=== PATIENT | male | born 1950 | race American Indian/Alaskan Native ===

== ENCOUNTER 2019-05-07 12:54 | Day surgery (SDC) | payer OTHER ==
[2019-05-07] MEDS ORDERED: LACTATED RINGERS 1,000 ML IV SCH (14:15)
[2019-05-07] MEDS ORDERED: LACTATED RINGERS 1,000 ML ONE (14:23)
--- NOTE | 2019-05-07 14:48 | Anesthesia Day of Surgery ---
Anesthesia Day of Surgery - Day of Surgery Patient Examined: Yes Patient H&P Reviewed: Yes Patient is NPO: Yes (2199) Beta Blockers: No Cardiac Clearance: No Pulmonary Clearance: No Viktor's Test: N/A
--- NOTE | 2019-05-07 14:53 | Anesthesia Consultation ---
Anesthesia Consult and Med Hx Date of service: 05/07/19 - Airway Anesthetic Teeth Evaluation: Good ROM Head & Neck: Adequate Mental/Hyoid Distance: Adequate Intubation Access Assessment: Good - Pulmonary Exam CTA: Yes - Cardiac Exam Cardiac Exam: RRR - Pre-Operative Health Status ASA Pre-Surgery Classification: ASA2 Proposed Anesthetic Plan: General - Pulmonary Hx Smoking: Yes (QUIT 2004) Hx Asthma: No Hx Respiratory Symptoms: No SOB: No COPD: No Home Oxygen Therapy: No Hx Pneumonia: No Hx Sleep Apnea: Yes (DX SLEEP APNEA , NO CPAP USE.) - Cardiovascular System Hx Hypertension: No Hx Coronary Artery Disease: No Hx Heart Attack/AMI: No Hx Angina: No Hx Percutaneous Transluminal Coronary Angioplasty (PTCA): No Hx Cardia Arrhythmia: No Hx Pacemaker: No Hx Internal Defibrillator: No Hx Valvular Heart Disease: No Hx Heart Murmur: No Hx Peripheral Vascular Disease: No - Central Nervous System Hx Neuromuscular Disorder: No Hx Seizures: No CVA: No Hx Back Pain: Yes (OCC.) Hx Psychiatric Problems: Yes ([PTSD ]) - Gastrointestinal Hx Ulcer: No Hx Gastroesophageal Reflux Disease: No - Endocrine Hx Renal Disease: No Hx End Stage Renal Disease: No Hx Cirrhosis: No Hx Liver Disease: No Hx Insulin Dependent Diabetes: No Hx Non-Insulin Dependent Diabetes: No Hx Thyroid Disease: No Hx Hypothyroidism: No Hx Hyperthyroidism: No - Hematic Hx Anemia: No Hx Sickle Cell Disease: No - Other Systems Hx Alcohol Use: Yes (OCC. VODKA) Hx Substance Use: No Hx Cancer: No
[2019-05-07] MEDS ORDERED: ceFAZolin/Water 2 GM/20 ML 2 GM/20 ML SYRINGE IV NR (15:00)
[2019-05-07] MEDS ORDERED: LIDOCAINE MPF (2%) 20 MG/1 ML VIAL 5 ML ONE (15:56)
[2019-05-07] MEDS ORDERED: fentaNYL 100 MCG/2 ML INJ ONE (15:56)
[2019-05-07] MEDS ORDERED: propofoL 200 MG/20 ML VIAL IV ONE (15:57)
--- NOTE | 2019-05-07 16:39 | Post Operative Note ---
Date of procedure: 05/07/19 Pre-op diagnosis: broussard Post-op diagnosis: same Findings: bph Procedure: rezum Anesthesia: GETA Surgeon: BHAVNA BLACKWELL Estimated blood loss: minimal Pathology: none Condition: stable Disposition: PACU
--- NOTE | 2019-05-07 16:41 | Discharge Summary ---
Short Stay Discharge Plan Activity: other (no straining) Weight Bearing Status: Full Weight Bearing Diet: low fat, low cholesterol, low salt Special Instructions: other (inc fluids) Durable Medical Equipment Needed Upon Discharge: other ([facility]) Follow up with: [facility] [Primary Care Provider] - 7 Days BHAVNA BLACKWELL MD [Staff Physician] - 7 Days
[2019-05-07 18:33] VITALS: BP 138/81
--- NOTE | 2019-05-07 19:41 | Operative Report ---
PREOPERATIVE DIAGNOSES: Trilobar hypertrophy, bladder outlet obstruction. POSTOPERATIVE DIAGNOSES: Trilobar hypertrophy, bladder outlet obstruction. PROCEDURE: Cystoscopy, resume therapy. SURGEON: Dr. Stubbs. ANESTHESIA: General. FINDINGS: This is a gentleman with severe bladder outlet obstruction. He now presents for resume therapy. All risks and implications discussed. DESCRIPTION OF PROCEDURE: The patient was brought to the operating room and placed on the operating table. Following induction of anesthesia, placed in lithotomy position, prepped and draped in usual sterile fashion. Cystourethroscopy showed trilobar hypertrophy with 2+ trabeculation. Using the resume therapy, we used 2 injections on each lateral lobe and 2 in the middle lobe. The patient tolerated the procedure well. No significant bleeding, no significant complications. A 20 coude was easily placed, brought to recovery in stable condition. JOB# [id number] LISA/MARIAH
== END 2019-05-07 19:01 | disposition home or self-care (01) ==
LOC: OR 12:54
PROVIDERS: ATTEND Urology
DX: N40.0 Benign prostatic hyperplasia without lower urinary tract symptoms (principal); R39.12 Poor urinary stream; N32.89 Other specified disorders of bladder; G47.30 Sleep apnea, unspecified; F31.9 Bipolar disorder, unspecified; F41.9 Anxiety disorder, unspecified; Z87.891 Personal history of nicotine dependence; Z79.899 Other long term (current) drug therapy; Z72.89 Other problems related to lifestyle; Z98.890 Other specified postprocedural states
CPT/HCPCS: 53854; J0690; J2704; J3010; J7120